=== PATIENT | male | born 1990 | race Caucasian/White ===

== ENCOUNTER 2018-10-10 22:03 | Emergency (ER) | payer OTHER ==
[~2018-10-10] VITALS: Ht 172.7 cm; Wt 74.8 kg
--- OUTSIDE RECORDS SUMMARY | 2018-10-10 22:44 | XMS ---
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 ESylvie VISIT COUNT (12 MO.) [address] [place] TOTAL 2 NOTE: Visits indicate total known visits. ED/UCC VISIT TRACKING (12 MO.) 10/10/2018 22:04 [facility] [place] TYPE: Emergency COMPLAINT: - DETOXING 09/11/2018 20:40 [facility] [place] TYPE: Emergency DIAGNOSES: - INTOXICATION - Alcohol use, unspecified with intoxication, uncomplicated INPATIENT VISIT TRACKING (12 MO.) No inpatient visits to display in this time frame [email or web address]
== END 2018-10-10 22:41 | disposition home or self-care (01) ==
LOC: ED 22:03
DX: F10.20 Alcohol dependence, uncomplicated (principal); F17.200 Nicotine dependence, unspecified, uncomplicated
CPT/HCPCS: 99284

== ENCOUNTER 2018-11-22 19:44 | Emergency (ER) | payer OTHER ==
[~2018-11-22] VITALS: Ht 172.7 cm; Wt 79.4 kg
[2018-11-22] MEDS ORDERED: ATIVAN1 MG PO (21:18)
== END 2018-11-22 21:31 | disposition home or self-care (01) ==
LOC: ED 19:44
DX: F10.10 Alcohol abuse, uncomplicated (principal); F17.200 Nicotine dependence, unspecified, uncomplicated
CPT/HCPCS: 99284

== ENCOUNTER 2019-10-02 20:10 | Emergency (ER) | payer OTHER ==
[~2019-10-02] VITALS: Ht 172.7 cm; Wt 79.4 kg
[~2019-10-02 20:10] MED LIST: ATIVAN1 MG PO
== END 2019-10-02 21:40 | disposition home or self-care (01) ==
LOC: ED 20:10
DX: S92.355A Nondisplaced fracture of fifth metatarsal bone, left foot, initial encounter for closed fracture (principal); S01.21XA Laceration without foreign body of nose, initial encounter; S80.212A Abrasion, left knee, initial encounter; S80.211A Abrasion, right knee, initial encounter; S50.312A Abrasion of left elbow, initial encounter; S50.311A Abrasion of right elbow, initial encounter; F17.200 Nicotine dependence, unspecified, uncomplicated; Y04.2XXA Assault by strike against or bumped into by another person, initial encounter
CPT/HCPCS: 73610; 73630; 90471; 90715; 99284-25